=== PATIENT | female | born 1990 | race Caucasian/White ===

== ENCOUNTER 2018-09-20 03:40 | Inpatient (IN) | payer MEDICAID ==
[2018-09-20] MEDS ORDERED: CARBOPROST 250 MCG INJ IM ×2 (05:00→23:30)
[2018-09-20] MEDS ORDERED: BUTORPHANOL 2 MG INJ IV (05:00)
[2018-09-20] MEDS ORDERED: MISOPROSTOL 200 MCG TAB PR ×2 (05:00→23:30)
[2018-09-20] MEDS ORDERED: METHYLERGONOVINE 0.2 MG INJ IM ×2 (05:00→23:30)
[2018-09-20] MEDS ORDERED: OXYTOCIN 30 UNITS/LR 500 ML IV ×2 (05:00)
[2018-09-20] MEDS ORDERED: LIDOCAINE 1% (MPF) 30 ML INJ INJ (05:00)
[2018-09-20 05:03] LABS: ADD UMIC YES; UR ASCORBIC ACID NEGATIVE (NEGATIVE); UR BACTERIA FEW /HPF (NONE SEEN); UR BILIRUBIN (Dip) NEGATIVE (NEGATIVE); UR BLOOD (Dip) 3+ mg/dL (NEGATIVE); UR CLARITY SLIGHTLY CLOUDY (CLEAR); UR COLOR YELLOW (YELLOW); UR GLUCOSE (Dip) NEGATIVE (NEGATIVE); UR KETONES (Dip) NEGATIVE (NEGATIVE); UR LEUKOCYTE ESTERASE (Dip) 1+ Leu/ul (NEGATIVE); UR NITRITE (Dip) NEGATIVE (NEGATIVE); UR RBC 48 /HPF (0-5); UR SPECIFIC GRAVITY (Dip) 1.014 (1.003-1.030); UR SQUAMOUS EPITHELIAL CELL FEW /HPF (FEW); UR TOTAL PROTEIN (Dip) NEGATIVE (NEGATIVE); UR UROBILINOGEN (Dip) NEGATIVE (NEGATIVE); UR WBC 13 /HPF (0-5)
[2018-09-20 05:03] LABS: RUPTURE FETAL MEMBRANES POSITIVE (NEGATIVE)
[2018-09-20 05:19] LABS: ADD MAN DIFF? NO
[2018-09-20 05:26] LABS: BASOPHILS % 0.3 % (0.0-2.0); EOSINOPHILS # 0.1 10^3/ul (0.0-0.5); EOSINOPHILS % 1.1 % (0.0-7.0); HEMOGLOBIN 11.8 g/dl (12.0-16.0); LYMPHOCYTES # 1.5 10^3/ul (0.8-2.9); LYMPHOCYTES % 14.5 % (15.0-51.0); MEAN CORPUSCULAR HEMOGLOBIN 28.4 pg (29.0-33.0); MEAN CORPUSCULAR HGB CONC 33.7 g/dl (32.0-37.0); MEAN CORPUSCULAR VOLUME 84.1 fl (82.0-101.0); MEAN PLATELET VOLUME 10.9 fl (7.4-10.4); MONOCYTE # 0.9 10^3/ul (0.3-0.9); MONOCYTES % 8.4 % (0.0-11.0); NEUTROPHIL # 7.7 10^3/ul (1.6-7.5); NEUTROPHILS % 75.1 % (39.0-77.0); PLATELET COUNT 263 10^3/UL (140-415); RED BLOOD COUNT 4.16 10^6/ul (4.20-5.40); RED CELL DISTRIBUTION WIDTH 14.7 % (11.5-14.5)
[2018-09-20 05:26] LABS: WHITE BLOOD COUNT 10.3 10^3/ul (4.8-10.8)
[2018-09-20 05:39] LABS: INR 0.83; PROTIME 11.5 Sec (11.9-14.9); PT RATIO 0.9
[2018-09-20 05:40] LABS: PARTIAL THROMBOPLASTIN TIME 25.8 Sec (23.0-35.0)
[2018-09-20] MEDS: LACTATED RINGER'S 1,000 ML IV ×4 (05:54→12:18)
[2018-09-20 06:19] LABS: HEPATITIS B SURFACE ANTIGEN NEGATIVE (NEGATIVE)
[2018-09-20] MEDS ORDERED: MINERAL OIL LIGHT 10 ML VIAL (06:19)
[2018-09-20] MEDS: OXYTOCIN 30 UNITS/LR 500 ML IV ×2 (09:42→21:05)
[2018-09-20] MEDS ORDERED: NALOXONE (0.4 MG/ML) INJ IV (10:00)
[2018-09-20] MEDS ORDERED: HYDROmorphONE 0.5 MG/0.5 ML SYG IV ×2 (10:00)
[2018-09-20] MEDS ORDERED: FENTAnyl 2MCG/ML-ROPIV 0.2% 100 ML BAG EPI (10:00)
[2018-09-20] MEDS ORDERED: DIPHENHYDRAMINE 50 MG INJ IV (10:00)
[2018-09-20] MEDS ORDERED: ONDANSETRON 4 MG INJ IV (10:00)
[2018-09-20] MEDS ORDERED: KETOROLAC 30 MG INJ IV (10:00)
[2018-09-20 15:36] LABS: RAPID PLASMA REAGIN NONREACTIVE (NR)
[2018-09-20] MEDS: MINERAL OIL LIGHT 10 ML VIAL TOP (20:57)
[2018-09-20] MEDS: ACETAMINOPHEN 500 MG TAB PO (22:14)
[2018-09-20] MEDS ORDERED: OXYCODONE/ASPIRIN (4.88/325) TAB PO ×2 (23:30)
[2018-09-20] MEDS ORDERED: ZOLPIDEM 5 MG TAB PO (23:30)
[2018-09-21] MEDS: OXYTOCIN 30 UNITS/LR 500 ML IV (01:50)
[2018-09-21] MEDS: BENZOCAINE 20% 56 ML SPRAY TOP (03:27)
[2018-09-21] MEDS: LANOLIN HPA 1 PKT TOP (03:27)
[2018-09-21] MEDS: WITCH HAZEL/GLYCERIN PAD PR (03:27)
[2018-09-21] MEDS: IBUPROFEN 600 MG TAB PO ×5 (05:29→23:35)
[2018-09-21 07:29] LABS: ADD MAN DIFF? NO
[2018-09-21 07:32] LABS: BASOPHILS % 0.2 % (0.0-2.0); EOSINOPHILS # 0.1 10^3/ul (0.0-0.5); EOSINOPHILS % 0.8 % (0.0-7.0); HEMATOCRIT 34.3 % (37.0-47.0); HEMOGLOBIN 11.5 g/dl (12.0-16.0); LYMPHOCYTES # 1.4 10^3/ul (0.8-2.9); LYMPHOCYTES % 11.3 % (15.0-51.0); MEAN CORPUSCULAR HEMOGLOBIN 28.7 pg (29.0-33.0); MEAN CORPUSCULAR HGB CONC 33.5 g/dl (32.0-37.0); MEAN CORPUSCULAR VOLUME 85.5 fl (82.0-101.0); MONOCYTE # 1.1 10^3/ul (0.3-0.9); MONOCYTES % 8.7 % (0.0-11.0); NEUTROPHIL # 9.9 10^3/ul (1.6-7.5); NEUTROPHILS % 78.5 % (39.0-77.0); PLATELET COUNT 271 10^3/UL (140-415); RED BLOOD COUNT 4.01 10^6/ul (4.20-5.40); RED CELL DISTRIBUTION WIDTH 15.1 % (11.5-14.5)
[2018-09-21 07:32] LABS: WHITE BLOOD COUNT 12.6 10^3/ul (4.8-10.8)
[2018-09-21] MEDS ORDERED: [UNRECOGNIZED DRUG - OTHER] PO (09:00)
[2018-09-21] MEDS: SENNA/DOCUSATE NA (8.6MG/50MG) TAB PO ×2 (09:02→21:33)
[2018-09-21] MEDS: PRENATAL VITAMIN PO (09:02)
[2018-09-22] MEDS: IBUPROFEN 600 MG TAB PO ×2 (05:23→11:53)
[2018-09-22] MEDS: SENNA/DOCUSATE NA (8.6MG/50MG) TAB PO (09:02)
[2018-09-22] MEDS: PRENATAL VITAMIN PO (09:02)
[2018-09-22] MEDS: DIPHTH/TET/ACEL PERTUSS (ADULT) 0.5 ML VIAL IM* (12:06)
== END 2018-09-22 17:15 | disposition home or self-care (01) | DRG 807 ==
LOC: OBT 03:40 → L-D 03:40 → OBT 04:53 → L-D 04:53 → PP1 23:12
PROVIDERS: Obstetrics & Gynecology
PROC: 10E0XZZ Delivery of Products of Conception, External Approach (ICD-10-PCS; principal; 2018-09-20)
PROC: 0HQ9XZZ Repair Perineum Skin, External Approach (ICD-10-PCS; 2018-09-20)
DX: O99.214 Obesity complicating childbirth (principal); Z37.0 Single live birth; E66.01 Morbid (severe) obesity due to excess calories; O42.02 Full-term premature rupture of membranes, onset of labor within 24 hours of rupture; O63.9 Long labor, unspecified; O70.9 Perineal laceration during delivery, unspecified; Z3A.38 38 weeks gestation of pregnancy; Z23 Encounter for immunization
CPT/HCPCS: 62319; 76815; 81001; 84112; 85025; 85610; 85730; 86592; 86850; 86900; 86901; 87340; 90686; 90715